=== PATIENT | female | born 1945 | race Caucasian/White ===

== ENCOUNTER 2018-08-23 18:49 | Emergency (ER) | payer MEDICARE ==
--- NOTE | 2018-08-23 19:02 | ER Report ---
History and Physical Time Seen By MD: 19:00 HPI/ROS CHIEF COMPLAINT: "Nose fracture" HISTORY OF PRESENT ILLNESS: Patient is a 73-year-old female who is recently returning from a dog show. She states she tripped over her dog and hit her nose is concerned about a possible nasal bone fracture. She has some nose bleeding which has now stopped since arrival to the emergency department she denies any other complaints at this time. Allergies: Coded Allergies: Penicillins (Verified Allergy, Intermediate, 08/23/18) acetaminophen (Verified Adverse Reaction, Unknown, 08/23/18) oxycodone (Verified Adverse Reaction, Unknown, 08/23/18) Past Medical/Surgical History Noncontributory towards this chief complaint Constitutional Vital Sign - Last 24 Hours 08/23/18 19:29 Temp 98.0 Pulse 56 Resp 16 B/P (MAP) 173/89 Pulse Ox 93 O2 Delivery Room Air Physical Exam General Appearance: Alert, no distress. Eyes: [Pupils equal and round no pallor or injection.] ENT, Mouth: Ears: Tympanic membranes are normal. Nose: No active bleeding. Mouth: Mucous membranes are moist. Throat: No erythema or exudates there is no tonsillar hypertrophy and uvula is midline. Musculoskeletal: Neck is supple non tender, no adenopathy. Skin: Warm and dry, no rashes. Medical Decision Making EKG/Imaging Imaging FACILITY: [facility] [place] PATIENT NAME: Lilian Hopkins : 1945 MR: [id number] V: [id number] EXAM DATE: ORDERING PHYSICIAN: ARVIND DODGE TECHNOLOGIST: Location: [facility] Patient: Lilian Hopkins : 1945 Visit/Account:[id number] Date of Sevice: 08/23/2018 NASAL BONE INDICATION: Nasal pain, laceration bleeding after trip and fall. COMPARISON: None available FINDINGS: 3 views nasal bone. No fracture. The nasal spine is intact. No significant nasal septum deviation. Sinuses visualized are clear. Orbits appear intact. No bony lesions. No radiopaque foreign body besides dental work. IMPRESSION: No acute abnormality. Report Dictated By: Clive Kaur at 08/23/2018 8:06 PM Report E-Signed By: Clive Kaur at 08/23/2018 8:08 PM WSN:[id number] ED Course/Re-evaluation ED Course 08/23/2018 8:26:39 pm x-ray unremarkable no evidence of fracture no epistaxis at this time. Decision to Disposition Date: Aug 23, 2018 Decision to Disposition Time: 20:26 Depart Departure Latest Vital Signs Vital Signs Date Time Temp Pulse Resp B/P (MAP) Pulse Ox O2 Delivery O2 Flow Rate FiO2 08/23/18 19:29 98.0 56 16 173/89 93 Room Air Impression: Primary Impression: Nasal contusion Condition: Improved Disposition: HOME OR SELF-CARE Patient Instructions: Contusion in Adults (ED) Problem Qualifiers Primary Impression: Nasal contusion Encounter type: initial encounter Qualified Codes: S00.33XA - Contusion of nose, initial encounter ARVIND DODGE MD Aug 23, 2018 19:02
[2018-08-23] MEDS ORDERED: DIPHTH/TETANUS/ACEL. PERTUSSIS IM ONLY ONE (19:35)
--- NOTE | 2018-08-23 20:14 | RADIOLOGY IMAGING REPORT ---
FACILITY: [facility] [place] PATIENT NAME: Lilian Hopkins : 1945 MR: [id number] V: [id number] EXAM DATE: ORDERING PHYSICIAN: ARVIND DODGE TECHNOLOGIST: Location: [facility] [place] Patient: Lilian Hopkins : 1945 Visit/Account:[id number] Date of Sevice: 08/23/2018 NASAL BONE INDICATION: Nasal pain, laceration bleeding after trip and fall. COMPARISON: None available FINDINGS: 3 views nasal bone. No fracture. The nasal spine is intact. No significant nasal septum d eviation. Sinuses visualized are clear. Orbits appear intact. No bony lesions. No radiopaque foreign body besides dental work. IMPRESSION: No acute abnormality. Report Dictated By: Clive Kaur at 08/23/2018 8:06 PM Report E-Signed By: Clive Kaur at 08/23/2018 8:08 PM WSN:[id number]
[2018-08-23 20:15] VITALS: BP 153/88
[2018-08-23] MEDS ORDERED: OXYMETAZOLINE SPRAY 15 ML BTL ENA SCH (21:00)
== END 2018-08-23 20:32 | disposition home or self-care (01) ==
LOC: ER 19:03
DX: S00.33XA Contusion of nose, initial encounter (principal); W01.198A Fall on same level from slipping, tripping and stumbling with subsequent striking against other object, initial encounter
CPT/HCPCS: 70160; 90471; 90715; 99283; A9270